=== PATIENT | female | born 1950 | race Caucasian/White ===

== ENCOUNTER 2025-03-29 11:02 | Emergency (ER) | payer BC ==
[2025-03-29 12:37] LABS: APPEARANCE,URINE SLIGHTLY CLOUDY (CLEAR); BILIRUBIN,URINE NEGATIVE (NEGATIVE); COLOR,URINE YELLOW; GLUCOSE,URINE NEGATIVE (NEGATIVE); KETONES,URINE NEGATIVE (NEGATIVE); LEUKOCYTE ESTERASE,URINE TRACE (NEGATIVE); NITRITE,URINE POSITIVE (NEGATIVE); OCCULT BLOOD,URINE NEGATIVE (NEGATIVE); PH,URINE 6.5 (5.0-8.0); PROTEIN,URINE NEGATIVE (NEGATIVE); UROBILINOGEN,URINE 0.2 E.U./dL (0.2-1.0)
[2025-03-29 12:38] LABS: BACTERIA,URINE MANY /HPF; RBC,URINE 0-5 /HPF; WBC,URINE 0-5 /HPF
[2025-03-29] MEDS ORDERED: Sulfamethoxazole/Trimethoprim 800-160 MG Tab ONE (13:00)
== END 2025-03-29 13:26 | disposition home or self-care (01) ==
LOC: LB.ED 11:02
DX: N39.0 Urinary tract infection, site not specified (principal); M70.62 Trochanteric bursitis, left hip; M53.3 Sacrococcygeal disorders, not elsewhere classified; I10 Essential (primary) hypertension; E78.00 Pure hypercholesterolemia, unspecified; Z90.49 Acquired absence of other specified parts of digestive tract; Z79.82 Long term (current) use of aspirin; Z79.899 Other long term (current) drug therapy; Z91.048 Other nonmedicinal substance allergy status
CPT/HCPCS: 81001; 87086; 99283; A9270-GY; C1758